=== PATIENT | male | born 1965 | race Caucasian/White ===

== ENCOUNTER → 2016-06-01 | Outpatient (REF) ==
--- NOTE | 2016-06-02 02:52 | REP ---
Clinical: Pain and disability. Technique: AP, lateral, bilateral oblique views of the left ankle. Findings: Age-related degenerative changes are appreciated including cortical irregularity and elements of subchondral sclerosis and heterogeneity involving the ankle through mid foot. No overt osteoarthritic changes are appreciated and there is no evidence for acute or obvious healed fracture. Surrounding soft tissues grossly unremarkable. Impression: Moderate age-related degenerative changes. Signed by Shai Armenta MD 06/02/2016 02:43 A
== END | disposition home or self-care (01) ==
LOC: M SMT 13:50
PROVIDERS: ATTEND Internal Medicine
DX: Z02.71 Encounter for disability determination (principal)